=== PATIENT | female | born 1940 | race Caucasian/White ===

== ENCOUNTER → 2016-12-28 | Outpatient (CLI) | payer MEDICARE, OTHER ==
[~2016-12-28] MED LIST: COMPAZINE10 MG PO; CYMBALTA60 MG PO; DECADRON4 MG PO; MOUTHSPRAY10 ML PO; NEURONTIN300 MG PO; OMEGA 3 FISH O1 EACH PO; OMEPRAZOLE20 MG PO; PREDNISOLO15 MG/5 ML PO; REQUIP2 MG PO; SPIRONOLACTONE25 MG PO; XANAX0.25 MG PO; ZOFRAN ODT8 MG PO
== END | disposition short-term general hospital (02) ==
LOC: CLPULM 09:53
DX: J44.9 Chronic obstructive pulmonary disease, unspecified (principal); G25.81 Restless legs syndrome; K21.9 Gastro-esophageal reflux disease without esophagitis; Z85.118 Personal history of other malignant neoplasm of bronchus and lung

== ENCOUNTER → 2017-02-11 | Outpatient (CLI) | payer MEDICARE, OTHER | END | disposition short-term general hospital (02) | LOC: CLPAIN 10:19 | DX: M46.1 Sacroiliitis, not elsewhere classified (principal) ==

== ENCOUNTER 2017-02-25 12:20 | Day surgery (SDC) | payer MEDICARE, OTHER | END 2017-02-25 14:20 | disposition short-term general hospital (02) | LOC: SURGOP 12:20 | PROC: 3E0U33Z Introduction of Anti-inflammatory into Joints, Percutaneous Approach (ICD-10-PCS; principal; 2017-02-25) | PROC: 3E0U3BZ Introduction of Anesthetic Agent into Joints, Percutaneous Approach (ICD-10-PCS; 2017-02-25) | DX: M46.1 Sacroiliitis, not elsewhere classified (principal); L65.9 Nonscarring hair loss, unspecified; J43.9 Emphysema, unspecified; E11.9 Type 2 diabetes mellitus without complications; C34.90 Malignant neoplasm of unspecified part of unspecified bronchus or lung; G25.81 Restless legs syndrome; Z79.899 Other long term (current) drug therapy; Z98.1 Arthrodesis status | CPT/HCPCS: G0260-50; J1040; J3301 ==